=== PATIENT | female | born 1995 | race Caucasian/White ===

== ENCOUNTER 2021-02-12 11:37 | Emergency (ER) | payer OTHER ==
--- NOTE | 2021-02-12 13:57 | PCM.EKG ---
#1 Interpretation EKG Date: 02/12/21 Time: 13:33 Rhythm: NSR Rate (Beats/Min): 117 [place]: Normal P-Wave: Present QRS: Normal ST-T: Normal QT: Normal Comparison: NA - No Prior EKG EKG Interpretation Comments: Sinus Rhythm
[2021-02-12] MEDS ORDERED: Lactated Ringers 1,000 ML IV ONE (14:04)
[2021-02-12] MEDS ORDERED: Cefepime 2 GM in Premix Bag 1 BAG IV ONE (14:06)
[2021-02-12] MEDS ORDERED: VANCOmycin 1.5 GM/300 ML 300 ML IV ONE (14:30)
[2021-02-12 14:31] LABS: BLOOD UREA NITROGEN,BUN 8 mg/dL (7.0-18.0); CARBON DIOXIDE,CO2 26.7 mmol/L (21.0-32.0); CHLORIDE,CL 99 mmol/L (98-107); GLUCOSE RANDOM 118 mg/dL (74-106); POTASSIUM,K 4.2 mmol/L (3.5-5.1); SODIUM,NA 135 mmol/L (136-145)
--- NOTE | 2021-02-12 15:22 | CR ---
INDICATION: Cough. TECHNIQUE: Chest 1 view. COMPARISON: None. FINDINGS: There are streaky opacities in the right lung base as well as a small focal opacity in the left lower lung. These may be infectious or inflammatory. No pleural effusion or pneumothorax. Normal heart size and pulmonary vascularity. The bones are unremarkable. IMPRESSION: Opacities in both lung bases may be infectious or inflammatory. Dictated by Nena Liang MD @ 02/12/2021 3:20:[address] Nena Liang @ Feb 12 2021 3:20PM
--- NOTE | 2021-02-12 17:45 | EDM.PDOC ---
ED HPI GENERAL MEDICAL PROBLEM - General Chief Complaint: Skin Complaint Stated Complaint: SORE ON RT LEG/ COUGHING FEVER Time Seen by Provider: 02/12/21 13:47 - History of Present Illness INITIAL COMMENTS - FREE TEXT/NARRATIVE: CHIEF COMPLAINT(S): Cough and skin infection HISTORY OF PRESENT ILLNESS: This is a 25-year-old woman with a past medical history of MRSA who presents to the emergency department with chief complaint of cough and skin impression. The patient states that for approximately 3 to 4 days now she has been experiencing a nonproductive cough. She states that she has not yet had her vaccine. She does not know of any exposures. She denies any exertional dyspnea or shortness of breath. She denies any chest pain, lower extremity edema, recent travel recent surgery or prior history of DVT or PE. She states that in addition to the cough she noticed some bumps on the posterior side of her right calf which started to become red which extended from her Achilles tendon all the way up to her calf. She states that since that time there hasn't been any obvious drainage but the redness and pain had significantly decreased. She currently rates her pain as 4-5 out of 10. She denies any fever or chills. She states that she has not yet taken anything for pain. She denies any exacerbating relieving factors. REVIEW OF SYSTEMS: Constitutional: Denies fever, chills. Eyes: Denies eye pain Ears, Nose, Mouth, & Throat: Denies earache Cardiovascular: Denies chest pain Respiratory: Positive for cough denies shortness of breath Gastrointestinal: Denies Nausea, vomiting, diarrhea, hematochezia. Genitourinary: Denies hematuria Skin: Positive for rash to right lower extremity MSK: Denies joint pain Neurological: Denies blurred vision Psychiatric: Denies depression PAST MEDICAL HISTORY: As per history of present illness and as reviewed below otherwise noncontributory. SURGICAL HISTORY: As per history of present illness and as reviewed below otherwise noncontributory. SOCIAL HISTORY: As per history of present illness and as reviewed below otherwise noncontributory. FAMILY HISTORY: As per history of present illness and as reviewed below otherwise noncontributory. EXAMINATION OF ORGAN SYSTEMS/BODY AREAS: Constitutional: Blood pressure is 140/90, heart rate 121, respiratory rate 16 with an ox saturation by 7% on room air. Temperature 38.1 General: Well appearing woman who is in no acute distress Psychiatric: Appropriate mood and affect. Eyes: No scleral icterus or conjunctival erythema ENMT: Moist mucous membranes. No pharyngeal erythema Cardiovascular: Regular, rate, and rhythm. No gallops, murmurs, or rubs. Bilateral upper extremity pulses symmetric and intact. No peripheral edema. No JVD. Respiratory: Lungs clear to auscultation bilaterally. No wheezes, rales, or rhonchi. Gastrointestinal: Soft, non-tender, non-distended. Normoactive bowel sounds Genitourinary: No suprapubic tenderness Musculoskeletal: Normal range of motion. Skin: There are 2 areas of swelling and circular erythema on the patient's posterior aspect of her right calf without any crepitus or purulent drainage. There is some induration but no fluctuance. Neurological: Alert, GCS 15 MEDICAL DECISION MAKING AND COURSE IN THE ED WITH INTERPRETATION/REVIEW OF DIAGNOSTIC STUDIES: This is a 25-year-old woman with a past medical history of prior MRSA who presents to the emergency department with cough and right lower extremity cellulitis without any obvious evidence of abscess. At this time the patient is febrile and tachycardic we will obtain a septic work-up. We'll pr ovide the patient with 1 L of lactated Ringer's bolus and provide the patient with cefepime and vancomycin for presumed sepsis secondary to cellulitis. We will evaluate further need for fluid administration after laboratory analysis as the patient's blood pressure is normal. Differential also occludes COVID-19 given that the patient has a cough. Laboratory: CBC is unremarkable. INR is normal. CMP reveals hyponatremia at 135, elevation AST at 130 otherwise unremarkable. hCG is negative. COVID-19 is positive. The radiological images were viewed by myself along with reading the report from the radiologist. Chest x-ray does not reveal any acute cardiopulmonary process. There are opacities in both lung bases which may be infectious or inflammatory. After imaging the patient's vital signs and symptoms improved. At this time I did discuss with her the results. I did discuss that we would start her on Bactrim for the cellulitis of the right lower extremity and discussed treatment of COVID-19 including symptomatic home treatment. She is to follow-up with her primary care physician as needed. She is to return for any new or worsening symptoms. She was amenable to discharge and had no further questions. DISPOSITION: The patient was discharged home in stable condition. The patient will follow up with primary care physician CONDITION: Good PROCEDURES: None FINAL IMPRESSION(S)/DIAGNOSES: 1. Acute COVID-19 pneumonia 2. Acute cellulitis Miguel Ángel Oliveira M.D. - Related Data Allergies Allergy/AdvReac Type Severity Reaction Status Date / Time No Known Allergies Allergy Verified 02/12/21 13:55 Home Meds: Home Meds Sulfamethoxazole/Trimethoprim [Bactrim Ds Tablet] 1 each PO BID #10 tablet 02/12/21 [Rx] Past Medical History - Past Health History Medical/Surgical History: Denies Medical/Surgical History [employer] History: Reports: - Infectious Disease History Infectious Disease History: Reports: MRSA Social & Family History - Caffeine Use Caffeine Use: Reports: Coffee, Soda ED ROS GENERAL - Review of Systems Review Of Systems: See Below ED EXAM, GENERAL - Physical Exam Exam: See Below Course - Vital Signs Last Recorded V/S: Last Vital Signs Temp 38.1 C 02/12/21 13:56 Pulse 99 02/12/21 17:57 Resp 17 02/12/21 17:57 BP 141/80 H 02/12/21 17:57 Pulse Ox 98 02/12/21 17:57 - Orders/Labs/Meds Labs: Laboratory Tests 02/12/21 02/12/21 02/12/21 Range/Units 13:46 13:46 13:46 WBC 4.75 (4.0-11.0) K/uL RBC 5.11 (4.30-5.90) M/uL Hgb 15.2 (12.0-16.0) g/dL Hct 44.8 (36.0-46.0) % MCV 87.7 (80.0-98.0) fL MCH 29.7 (27.0-32.0) pg MCHC 33.9 (31.0-37.0) g/dL RDW Std Deviation 45.8 (28.0-62.0) fl RDW Coeff of [place] 14 (11.0-15.0) % Plt Count 221 (150-400) K/uL MPV 11.70 (7.40-12.00) fL Neut % (Auto) 59.4 (48.0-80.0) % Lymph % (Auto) 25.9 (16.0-40.0) % [place] % (Auto) 13.9 (0.0-15.0) % Eos % (Auto) 0.6 (0.0-7.0) % Baso % (Auto) 0.2 (0.0-1.5) % Neut # (Auto) 2.8 (1.4-5.7) K/uL Lymph # (Auto) 1.2 (0.6-2.4) K/uL [place] # (Auto) 0.7 (0.0-0.8) K/uL Eos # (Auto) 0.0 (0.0-0.7) K/uL Baso # (Auto) 0.0 (0.0-0.1) K/uL Nucleated RBC % 0.0 /100WBC Nucleated RBCs # 0 K/uL INR Sodium 135 L (136-145) mmol/L Potassium 4.2 (3.5-5.1) mmol/L Chloride 99 (98-107) mmol/L Carbon Dioxide 26.7 (21.0-32.0) mmol/L BUN 8 (7.0-18.0) mg/dL Creatinine 0.9 (0.6-1.0) mg/dL Est Cr Clr Drug Dosing TNP Estimated GFR (MDRD) > 60.0 ml/min Glucose 118 H (74-106) mg/dL Lactic Acid (0.4-2.0) mmol/L Calcium 8.3 L (8.5-10.1) mg/dL Magnesium 1.9 (1.8-2.4) mg/dL Total Bilirubin 0.2 (0.2-1.0) mg/dL AST 130 H (15-37) IU/L ALT 63 (14-63) IU/L Alkaline Phosphatase 82 (46-116) U/L Total Protein 7.6 (6.4-8.2) g/dL Albumin 3.4 (3.4-5.0) g/dL Globulin 4.2 H (2.6-4.0) g/dL Albumin/Globulin Ratio 0.8 L (0.9-1.6) HCG, Qual (NEG) SARS-CoV-2 RNA (LENARD) POSITIVE H (NEGATIVE) 02/12/21 02/12/21 02/12/21 Range/Units 13:46 13:46 13:46 WBC (4.0-11.0) K/uL RBC (4.30-5.90) M/uL Hgb (12.0-16.0) g/dL Hct (36.0-46.0) % MCV (80.0-98.0) fL MCH (27.0-32.0) pg MCHC (31.0-37.0) g/dL RDW Std Deviation (28.0-62.0) fl RDW Coeff of [place] (11.0-15.0) % Plt Count (150-400) K/uL MPV (7.40-12.00) fL Neut % (Auto) (48.0-80.0) % Lymph % (Auto) (16.0-40.0) % [place] % (Auto) (0.0-15.0) % Eos % (Auto) (0.0-7.0) % Baso % (Auto) (0.0-1.5) % Neut # (Auto) (1.4-5.7) K/uL Lymph # (Auto) (0.6-2.4) K/uL [place] # (Auto) (0.0-0.8) K/uL Eos # (Auto) (0.0-0.7) K/uL Baso # (Auto) (0.0-0.1) K/uL Nucleated RBC % /100WBC Nucleated RBCs # K/uL INR 1.01 Sodium (136-145) mmol/L Potassium (3.5-5.1) mmol/L Chloride (98-107) mmol/L Carbon Dioxide (21.0-32.0) mmol/L BUN (7.0-18.0) mg/dL Creatinine (0.6-1.0) mg/dL Est Cr Clr Drug Dosing Estimated GFR (MDRD) ml/min Glucose (74-106) mg/dL Lactic Acid 1.6 (0.4-2.0) mmol/L Calcium (8.5-10.1) mg/dL Magnesium (1.8-2.4) mg/dL Total Bilirubin (0.2-1.0) mg/dL AST (15-37) IU/L ALT (14-63) IU/L Alkaline Phosphatase (46-116) U/L Total Protein (6.4-8.2) g/dL Albumin (3.4-5.0) g/dL Globulin (2.6-4.0) g/dL Albumin/Globulin Ratio (0.9-1.6) HCG, Qual NEGATIVE (NEG) SARS-CoV-2 RNA (LENARD) (NEGATIVE) Meds: Medications Discontinued Medications Generic Name Dose Route Start Last Admin Trade Name Anastasiya PRN Reason Stop Dose Admin Lactated Ringer's 1,000 mls @ 999 mls/hr 02/12/21 14:04 02/12/21 14:26 Ringers, Lactated IV 02/12/21 15:04 999 mls/hr .BOLUS ONE Administration Cefepime HCl 2 gm/ Premix 50 mls @ 100 mls/hr 02/12/21 14:06 02/12/21 16:36 IV 02/12/21 14:35 100 mls/hr ONETIME ONE Administration Vancomycin HCl 300 mls @ 200 mls/hr 02/12/21 14:30 02/12/21 14:49 Vancomycin 1.5 Gm/300 Ml IV 02/12/21 15:59 200 mls/hr ONETIME ONE Administration Departure - Departure Time of Disposition: 17:44 Disposition: Home, Self-Care 01 Condition: Fair Clinical Impression: Cellulitis, COVID-19 - Discharge Information *PRESCRIPTION DRUG MONITORING PROGRAM REVIEWED*: No *COPY OF PRESCRIPTION DRUG MONITORING REPORT IN PATIENT CANDY: No Prescriptions: Sulfamethoxazole/Trimethoprim [Bactrim Ds Tablet] 1 each PO BID #10 tablet Instructions: Cellulitis, Adult, What You Should Know About COVID-19 to Protect Yourself and Others - [facility], 10 Things You Can Do to Manage Your COVID-19 Symptoms at Home - [facility] (12/15/2019) Referrals: PCP,None [Primary Care Provider] - Forms: ED Department Discharge Additional Instructions: You were evaluated today on an emergent basis. At this time all of your work-up was negative except for you being diagnosed with COVID-19. At this time I do recommend the following. You should take acetaminophen 500-1000 mg every 6 hours as needed for fever and muscle aches. Please drink plenty of fluids and get plenty of rest over the next several days. We would recommend that she get a pulse oximeter from the pharmacy to keep an eye on your oxygen level. If your oxygen level drops below 91%, you should return to the ED for evaluation. You should return to the ER sooner if you start having any symptoms of shortness of breath or any other new or concerning symptoms. 1. Your COVID-19 screening is positive. That means you do have the coronavirus and you are considered contagious. Your vital signs and oxygen saturation are well enough that you were able to monitor your symptoms at home. Continue to monitor for trouble breathing, new confusion or inability to arouse, bluish lips or face or any of the other symptoms we discussed -if this occurs please return to the emergency room. 2. Please self quarantine over the next 10 days. Inform any persons that you have been in contact with since you started becoming symptomatic that you have tested positive; they should be made aware and take the appropriate steps as needed. 3. May alternate Tylenol and ibuprofen as needed for pain and fever management. 4. The [facility] department will be calling you and following up with you. The [place] COVID 19 Hotline phone number , They are open Friday - Friday 7am - 7pm. Follow up with your primary care provider for re-evaluation and re-testing after the 10 day quarantine and discuss when you should be seen. As discussed given that your history of MRSA and the locations on your lower leg are improving we will start you on Bactrim twice a day for the next 5 days. If you have any worsening swelling, redness, pain I would like you to return to the emergency department. Otherwise please follow-up your primary care physician. [facility] - Primary Care [address] [place] [id number] [id number] The patient is informed of any results of their evaluation and diagnostic workup and all questions are answered. They are given discharge instructions and return precautions. The patient is stable for discharge. The patient states they understand and agree with the plan and that they will return if their symptoms get worse or if they have any new concerns. The following information is given to patients seen in the emergency department who are being discharged to home. This information is to outline your options for follow-up care. We provide all patients seen in our emergency department with a follow-up referral. The need for follow-up, as well as the timing and circumstances, are variable depending upon the specifics of your emergency department visit. If you don't have a primary care physician on staff, we will provide you with a referral. We always advise you to contact your personal physician following an emergency department visit to inform them of the circumstance of the visit and for follow-up with them and/or the need for any referrals to a consulting specialist. The emergency department will also refer you to a specialist when appropriate. This referral assures that you have the opportunity for follow-up care with a specialist. All of these measure are taken in an effort to provide you with optimal care, which includes your follow-up. Under all circumstances we always encourage you to contact your private physician who remains a resource for coordinating your care. When calling for follow-up care, please make the office aware that this follow-up is from your recent emergency room visit. If for any reason you are refused follow-up, please contact the [facility] at and asked to speak to the emergency department charge nurse. Sepsis Event Note (ED) - Evaluation Sepsis Screening Result: Possible Sepsis Risk
[2021-02-12 17:58] VITALS: BP 141/80; PULSE 99
== END 2021-02-12 17:58 | disposition home or self-care (01) ==
LOC: MW.ED 11:37
DX: U07.1 COVID-19 (principal); J12.82 Pneumonia due to coronavirus disease 2019; L03.115 Cellulitis of right lower limb
CPT/HCPCS: 36415; 71045; 80053; 83605; 83735; 84703; 85025; 85610; 87040; 87635; 93005; 96365; 96366; 96367; 99284; J0692; J3370; J7120; U0002

== ENCOUNTER 2022-12-19 17:53 | Emergency (ER) | payer OTHER | END 2022-12-19 19:20 | disposition left against medical advice (07) | LOC: MW.ED 17:53 | DX: Z53.21 Procedure and treatment not carried out due to patient leaving prior to being seen by health care provider (principal) ==

== ENCOUNTER 2023-12-20 13:33 | Emergency (ER) | payer OTHER | END 2023-12-20 15:01 | disposition left against medical advice (07) | LOC: MW.ED 13:33 | DX: Z53.21 Procedure and treatment not carried out due to patient leaving prior to being seen by health care provider (principal) ==

== ENCOUNTER 2025-03-31 20:24 | Emergency (ER) | payer OTHER ==
[2025-03-31] MEDS: Ketorolac 30 MG/ML SDV IM ONE (21:10)
[2025-03-31] MEDS: Amoxicillin/Clavulanate K 875-125 MG Tab PO ONE (21:10)
[2025-03-31 21:59] VITALS: BP 145/102; PULSE 105
== END 2025-03-31 21:59 | disposition home or self-care (01) ==
LOC: MW.ED 20:24
DX: K04.7 Periapical abscess without sinus (principal); R51.9 Headache, unspecified
CPT/HCPCS: 96372; 99283; A9270; J1885; 99284

== ENCOUNTER 2025-04-02 19:34 | Emergency (ER) | payer OTHER | END 2025-04-02 19:50 | disposition left against medical advice (07) | LOC: MW.ED 19:34 | DX: Z53.21 Procedure and treatment not carried out due to patient leaving prior to being seen by health care provider (principal) ==